=== PATIENT | female | born 1955 | race African-American/Black ===

== ENCOUNTER 2017-05-13 15:36 | Inpatient (IN) | payer MEDICARE ==
[~2017-05-13] VITALS: Ht 167.6 cm; Wt 95.3 kg
[2017-05-13 16:30] VITALS: BP 159/95
--- NOTE | 2017-05-13 17:00 | Diagnostic Imaging Report ---
Indication: Chest pain Technique: One view of the chest Comparison: none Findings: Lungs and pleural spaces are clear. Heart size is normal Impression: No acute process
[2017-05-13 17:41] LABS: BASOPHILS % (AUTO) 1.7 % (0.0-2.0); EOSINOPHILS % (AUTO) 3.5 % (0.0-3.0); HEMATOCRIT 41.3 % (37.0-47.0); HEMOGLOBIN 13.1 G/DL (12.0-16.0); LYMPHOCYTES % (AUTO) 45.5 % (20.0-45.0); MEAN CORPUSCULAR VOLUME 90 FL (80-99); MONOCYTES % (AUTO) 10.1 % (1.0-10.0); NEUTROPHILS % (AUTO) 39.2 % (45.0-75.0); PLATELET COUNT 288 K/UL (150-450); RED BLOOD COUNT 4.57 M/UL (4.20-5.40); RED CELL DISTRIBUTION WIDTH 13.4 % (11.6-14.8); WHITE BLOOD COUNT 6.1 K/UL (4.8-10.8)
[2017-05-13 17:43] LABS: ANION GAP 8 mmol/L (5-15); BLOOD UREA NITROGEN 11 mg/dL (7-18); CALCIUM 9.5 MG/DL (8.5-10.1); CARBON DIOXIDE 33 MMOL/L (21-32); CHLORIDE 100 MMOL/L (98-107); CREATININE 1.5 MG/DL (0.55-1.30); POTASSIUM 3.3 MMOL/L (3.5-5.1); SODIUM 141 MMOL/L (136-145)
[2017-05-13 17:55] LABS: ALANINE AMINOTRANSFERASE 14 U/L (12-78); ALBUMIN 3.3 G/DL (3.4-5.0); ALBUMIN/GLOBULIN RATIO 0.8 (1.0-2.7); ALKALINE PHOSPHATASE 97 U/L (46-116); ASPARTATE AMINO TRANSFERASE 16 U/L (15-37); BILIRUBIN,TOTAL 0.2 MG/DL (0.2-1.0); CKMB 0.5 NG/ML (0.0-3.6); CREATINE KINASE 84 U/L (26-308)
[2017-05-13 18:30] VITALS: BP 154/79
[2017-05-13] MEDS ORDERED: HUMALOG 75/255 UNITS SUBQ (19:30)
[2017-05-13] MEDS ORDERED: GLUCOPHAGE500 MG ORAL (19:30)
[2017-05-13] MEDS ORDERED: PROTONIX40 MG ORAL (19:30)
[2017-05-13] MEDS ORDERED: LIPITOR20 MG ORAL (19:30)
[2017-05-13] MEDS ORDERED: CARVEDILOL25 MG ORAL (19:30)
[2017-05-13] MEDS ORDERED: SENNA8.6 M2 PO (19:30)
[2017-05-13] MEDS ORDERED: BISACODYL5 MG RC (19:30)
[2017-05-13] MEDS ORDERED: CATAPRES0.3 MG ORAL (19:30)
[2017-05-13] MEDS ORDERED: ASPIR 8181 MG ORAL (19:30)
[2017-05-13] MEDS ORDERED: SORBITOL PO (19:30)
[2017-05-13] MEDS ORDERED: DOCUSATE SODIU250 MG ORAL (19:30)
[2017-05-13] MEDS ORDERED: FUROSEMIDE40 MG ORAL (19:30)
[2017-05-13] MEDS ORDERED: MINERAL OIL EN133 ML RC (19:30)
[2017-05-13] MEDS ORDERED: NORVASC10 MG ORAL (19:30)
[2017-05-13] MEDS ORDERED: LISINOPRIL20 MG ORAL (19:30)
[2017-05-13] MEDS ORDERED: [UNRECOGNIZED DRUG - OTHER] (19:30)
[2017-05-13] MEDS ORDERED: Nitroglycerin Subl 0.4mg tab SL PRN (20:00)
[2017-05-13] MEDS ORDERED: dilTIAZem HCl 25mg/5ml Inj IV PRN (20:00)
[2017-05-13] MEDS ORDERED: Miralax 17gm pkt ORAL PRN (20:00)
[2017-05-13] MEDS ORDERED: Labetalol 5mg/ml 20ml vial IV PRN (20:00)
[2017-05-13] MEDS ORDERED: Albuterol/Ipratropium 3ml neb HHN PRN (20:00)
--- NOTE | 2017-05-13 20:01 | Consultation ---
History of Present Illness General Date patient seen: May 13, 2017 Chief Complaint: Headache Referring physician: Dr Kwan Reason for Consultation: Inpatient management Present Illness HPI 61 year old female with hx of HTN, COPD, CVA, obesity, half-way resident presented by paramedics with complaints of headache. she was also found to have high blood pressure over the past few days. Patient complains of mild nausea. with minimal discussion the patient appears to become short of breath. She had a CT of head in ER showing subacute CVA. She is admitted to telemetry for further evaluation. Allergies: Coded Allergies: No Known Allergies (Unverified , 05/13/17) Medication History Scheduled Amlodipine Besylate (Norvasc), 10 MG ORAL DAILY, (Reported) Aspirin* (Aspir 81*), 81 MG ORAL DAILY, (Reported) Atorvastatin Calcium* (Lipitor*), 20 MG ORAL BEDTIME, (Reported) Carvedilol* (Carvedilol*), 25 MG ORAL EVERY 12 HOURS, (Reported) Clonidine Hcl* (Catapres*), 0.3 MG ORAL BID, (Reported) Docusate Sodium* (Docusate Sodium*), 250 MG ORAL TWICE A DAY, (Reported) Furosemide* (Lasix*), 40 MG ORAL TWICE A DAY, (Reported) Insulin Human Isophan/Regular (Humulin 70-30 Vial), 90 SUBQ BIDAC, (Reported) Lisinopril (Lisinopril*), 40 MG ORAL DAILY, (Reported) Metformin Hcl* (Glucophage*), 1,000 MG ORAL DAILY, (Reported) Pantoprazole* (Protonix*), 40 MG ORAL DAILY, (Reported) Sennosides (Senna), 17.6 MG PO HS, (Reported) Scheduled PRN Bisacodyl* (Dulcolax*), 10 MG RC DAILY PRN for Constipation, (Reported) Mineral Oil (Mineral Oil Enema), 133 ML RC DAILY PRN for Constipation, (Reported ) [sorbitol solution], 30 ML PO Q6HR PRN for Constipation, (Reported) Miscellaneous Medications [Humulin reg SS], (Reported) Patient History Healthcare decision maker Resuscitation status Advanced Directive on File Past Medical/Surgical History Past Medical/Surgical History: (1) History of cerebrovascular accident (2) Diabetes mellitus Review of Systems All Other Systems: negative except mentioned in HPI Physical Exam General Appearance: WD/WN Lines, tubes and drains: peripheral HEENT: normocephalic, atraumatic Neck: non-tender, normal alignment Respiratory/Chest: chest wall non-tender, lungs clear Cardiovascular/Chest: normal peripheral pulses, normal rate Abdomen: normal bowel sounds, non tender Genitourinary/Rectal: normal genital exam Extremities: normal range of motion, non-tender Skin Exam: normal pigmentation Neurologic: estimation manager II-XII grossly normal Last 24 Hour Vital Signs Date Time Temp Pulse Resp B/P (MAP) Pulse Ox O2 Delivery O2 Flow Rate FiO2 05/13/17 18:30 87 18 154/79 97 Room Air 05/13/17 16:30 97.5 87 18 159/95 97 Room Air 05/13/17 15:26 97.5 88 16 151/75 98 Room Air Laboratory Tests Test 05/13/17 17:05 White Blood Count 6.1 K/UL (4.8-10.8) Red Blood Count 4.57 M/UL (4.20-5.40) Hemoglobin 13.1 G/DL (12.0-16.0) Hematocrit 41.3 % (37.0-47.0) Mean Corpuscular Volume 90 FL (80-99) Mean Corpuscular Hemoglobin 28.7 PG (27.0-31.0) Mean Corpuscular Hemoglobin Concent 31.8 G/DL (32.0-36.0) L Red Cell Distribution Width 13.4 % (11.6-14.8) Platelet Count 288 K/UL (150-450) Mean Platelet Volume 8.0 FL (6.5-10.1) Neutrophils (%) (Auto) 39.2 % (45.0-75.0) L Lymphocytes (%) (Auto) 45.5 % (20.0-45.0) H Monocytes (%) (Auto) 10.1 % (1.0-10.0) H Eosinophils (%) (Auto) 3.5 % (0.0-3.0) H Basophils (%) (Auto) 1.7 % (0.0-2.0) Sodium Level 141 MMOL/L (136-145) Potassium Level 3.3 MMOL/L (3.5-5.1) L Chloride Level 100 MMOL/L (98-107) Carbon Dioxide Level 33 MMOL/L (21-32) H Anion Gap 8 mmol/L (5-15) Blood Urea Nitrogen 11 mg/dL (7-18) Creatinine 1.5 MG/DL (0.55-1.30) H Estimat Glomerular Filtration Rate 42.9 mL/min (>60) Glucose Level 142 MG/DL (74-106) H Calcium Level 9.5 MG/DL (8.5-10.1) Total Bilirubin 0.2 MG/DL (0.2-1.0) Aspartate Amino Transf (AST/SGOT) 16 U/L (15-37) Alanine Aminotransferase (ALT/SGPT) 14 U/L (12-78) Alkaline Phosphatase 97 U/L (46-116) Total Creatine Kinase 84 U/L (26-308) Creatine Kinase MB 0.5 NG/ML (0.0-3.6) Creatine Kinase MB Relative Index 0.5 Troponin I 0.000 ng/mL (0.000-0.056) Pro-B-Type Natriuretic Peptide 457 pg/mL (0-125) H Total Protein 7.6 G/DL (6.4-8.2) Albumin 3.3 G/DL (3.4-5.0) L Globulin 4.3 g/dL Albumin/Globulin Ratio 0.8 (1.0-2.7) L Lipase 71 U/L (73-393) L Height (Feet): 5 Height (Inches): 6.00 Weight (Pounds): 210 Assessment/Plan Problem List: (1) Hypertensive emergency ICD Codes: I16.1 - Hypertensive emergency SNOMED: 771777193792865 (2) Dyspnea ICD Codes: R06.00 - Dyspnea, unspecified SNOMED: 179445194 (3) Morbid obesity ICD Codes: E66.01 - Morbid (severe) obesity due to excess calories SNOMED: 158361218, 93684141249043 (4) Diabetes mellitus ICD Codes: E11.9 - Type 2 diabetes mellitus without complications SNOMED: 36158584 (5) History of cerebrovascular accident ICD Codes: Z86.73 - Personal history of transient ischemic attack (TIA), and cerebral infarction without residual deficits SNOMED: 484988209 Assessment/Plan titrate fio2 respiratory treatment echo cardio evaluaton monitor bp dvt prophylaxis. JUSTYNA HERNANDEZ May 13, 2017 20:01
--- NOTE | 2017-05-13 20:02 | Emergency Room Report ---
History of Present Illness General Chief Complaint: Headache Source: Patient, Medical Record Present Illness HPI Patient presents with complaints of headache Patient had history of migraines however was also found to have high blood pressure over the past few days Patient complains of mild nausea Denies any chest pain or shortness of breath denies any back or flank pain However with minimal discussion the patient appears to become short of breath She reports again history of migraine Which feels similar to this Denies any focal weakness Denies any neck pain or photophobia The headache is mainly occipital Allergies: Coded Allergies: No Known Allergies (Unverified , 05/13/17) Patient History Past Medical History: see triage record Pertinent Family History: none Reviewed Nursing Documentation: PMH: Agreed, PSxH: Agreed Nursing Documentation-PMH Hx Diabetes: Yes Hx Cerebrovascular Accident: Yes Review of Systems All Other Systems: negative except mentioned in HPI Physical Exam Vital Signs Date Time Temp Pulse Resp B/P (MAP) Pulse Ox O2 Delivery O2 Flow Rate FiO2 05/13/17 15:26 97.5 88 16 151/75 98 Room Air Sp02 EP Interpretation: reviewed, normal General Appearance: mild distress Head: normocephalic, atraumatic Eyes: bilateral eye PERRL, bilateral eye EOMI ENT: hearing grossly normal, normal pharynx, TMs + canals normal, uvula midline Neck: full range of motion, supple, no meningismus, no bony tend Respiratory: no respiratory distress, no retraction, no accessory muscle use, crackles - Bilaterally Cardiovascular #1: normal peripheral pulses, regular rate, rhythm, no edema, no gallop, no JVD, no murmur Gastrointestinal: normal bowel sounds, non tender, soft, no mass, no organomegaly, non-distended, no guarding, no hernia, no pulsatile mass, no rebound Genitourinary: no CVA tenderness Musculoskeletal: normal inspection Neurologic: oriented x3, responsive, [place] line attendant III-XII nml as tested, motor strength/ tone normal, sensory intact Psychiatric: mood/affect normal Skin: normal color, no rash, warm/dry, palpation normal Lymphatic: normal inspection, no adenopathy Medical Decision Making Diagnostic Impression: Primary Impression: Hypertensive urgency, malignant ER Course Patient is a fairly complex patient with multiple differential to consideration including but not limited to cardiac cardiopulmonary and vascular emergencies Patient's lower this appropriate blood pressure is being addressed in the emergency room Patient appears still somewhat uncomfortable And requires further inpatient care Patient's CT head read as chronic ischemic changes, refer to the full report however there are some areas that are nonspecific and will likely require further MRI Patient does not meet any criteria for thrombolytic criteria Patient does not have any slurring speech or focal deficit Main complaint was headache And will have further inpatient care Labs Test 05/13/17 17:05 White Blood Count 6.1 K/UL (4.8-10.8) Red Blood Count 4.57 M/UL (4.20-5.40) Hemoglobin 13.1 G/DL (12.0-16.0) Hematocrit 41.3 % (37.0-47.0) Mean Corpuscular Volume 90 FL (80-99) Mean Corpuscular Hemoglobin 28.7 PG (27.0-31.0) Mean Corpuscular Hemoglobin Concent 31.8 G/DL (32.0-36.0) Red Cell Distribution Width 13.4 % (11.6-14.8) Platelet Count 288 K/UL (150-450) Mean Platelet Volume 8.0 FL (6.5-10.1) Neutrophils (%) (Auto) 39.2 % (45.0-75.0) Lymphocytes (%) (Auto) 45.5 % (20.0-45.0) Monocytes (%) (Auto) 10.1 % (1.0-10.0) Eosinophils (%) (Auto) 3.5 % (0.0-3.0) Basophils (%) (Auto) 1.7 % (0.0-2.0) Sodium Level 141 MMOL/L (136-145) Potassium Level 3.3 MMOL/L (3.5-5.1) Chloride Level 100 MMOL/L (98-107) Carbon Dioxide Level 33 MMOL/L (21-32) Anion Gap 8 mmol/L (5-15) Blood Urea Nitrogen 11 mg/dL (7-18) Creatinine 1.5 MG/DL (0.55-1.30) Estimat Glomerular Filtration Rate 42.9 mL/min (>60) Glucose Level 142 MG/DL (74-106) Calcium Level 9.5 MG/DL (8.5-10.1) Total Bilirubin 0.2 MG/DL (0.2-1.0) Aspartate Amino Transf (AST/SGOT) 16 U/L (15-37) Alanine Aminotransferase (ALT/SGPT) 14 U/L (12-78) Alkaline Phosphatase 97 U/L (46-116) Total Creatine Kinase 84 U/L (26-308) Creatine Kinase MB 0.5 NG/ML (0.0-3.6) Creatine Kinase MB Relative Index 0.5 Troponin I 0.000 ng/mL (0.000-0.056) Pro-B-Type Natriuretic Peptide 457 pg/mL (0-125) Total Protein 7.6 G/DL (6.4-8.2) Albumin 3.3 G/DL (3.4-5.0) Globulin 4.3 g/dL Albumin/Globulin Ratio 0.8 (1.0-2.7) Lipase 71 U/L (73-393) Rhythm Strip Diag. Results EP Interpretation: yes Rate: 78 Rhythm: NSR, no PVC's, no ectopy Chest X-Ray Diagnostic Results Chest X-Ray Diagnostic Results : Chest X-Ray Ordered: Yes # of Views/Limited/Complete: 1 View Indication: Chest Pain EP Interpretation: Yes Interpretation: no consolidation, no effusion, no pneumothorax Impression: No acute disease Electronically Signed by: Jessica Dean, CT/MRI/US Diagnostic Results CT/MRI/US Diagnostic Results : Imaging Test Ordered: CT head evidence of right LEATHER CLEANER territory infarct does not appear acute ill e Impression CT head:chronic ischemic changes Last Vital Signs Date Time Temp Pulse Resp B/P (MAP) Pulse Ox O2 Delivery O2 Flow Rate FiO2 05/13/17 18:30 87 18 154/79 97 Room Air 05/13/17 16:30 97.5 Status: improved Disposition: ADMITTED INPATIENT Condition: Serious Referrals: SAKSHI RIDER (PCP) JESSICA DEAN D.O. May 13, 2017 20:02
[2017-05-13 20:25] VITALS: BP 163/66
[2017-05-13 21:00] VITALS: BP 145/79
[2017-05-13 21:38] VITALS: BP 163/66
[2017-05-13] MEDS: Carvedilol 25mg Tab ORAL SCH (21:42)
[2017-05-13] MEDS: Heparin 5000 units/ml inj SUBQ SCH (21:43)
[2017-05-14] VITALS: BP 150/73
[2017-05-14 04:00] VITALS: BP 159/93
[2017-05-14 08:00] VITALS: BP 160/102
[2017-05-14] MEDS: Furosemide 40mg tab ORAL SCH ×2 (10:02→17:12)
[2017-05-14] MEDS: Carvedilol 25mg Tab ORAL SCH ×2 (10:02→22:02)
[2017-05-14] MEDS: Lisinopril 20mg tab ORAL SCH (10:03)
[2017-05-14] MEDS: Heparin 5000 units/ml inj SUBQ SCH ×2 (10:05→22:05)
--- NOTE | 2017-05-14 11:57 | Diagnostic Imaging Report ---
Indications: Altered mental status, head pain Technique: Spiral acquisitions obtained through the brain. Angled axial and coronal 5 x 5 mm slices were reconstructed. Total dose length product 1347.93 mGycm. CTDI vol(s) 70.38 mGy. Dose reduction achieved using automated exposure control Comparison: None. Findings: Status post there is cytotoxic edema of the right occipital lobe. No associated hemorrhage. There is focal decreased attenuation in the right ugalde radiata. Otherwise normal vargas-white differentiation. Normal for age ventricles and extra axial CSF spaces. No acute hemorrhage. No mass effect nor midline shift. There is ethmoid sinus disease. The calvarium is intact. There is evidence of empty sella. There is mastoid disease on the left Impression: Subacute infarcts of the right occipital lobe, nonhemorrhagic Low-attenuation the right ugalde radiata, subacute infarct in this location also possibility Negative for acute intracranial bleed or significant mass effect Sinus disease Mastoid disease Empty sella This agrees with the preliminary interpretation provided overnight by [facility] teleradiology service. The CT scanner at [facility] is accredited by the [employer] and the scans are performed using protocols designed to limit radiation exposure to as low as reasonably achievable to attain images of sufficient resolution adequate for diagnostic evaluation.
[2017-05-14 12:00] VITALS: BP 164/94
[2017-05-14] MEDS: Enalaprilat 2.5mg/2ml Inj IV PRN (12:07)
--- NOTE | 2017-05-14 12:38 | Pulmonology Progress Note ---
Assessment/Plan Problems: (1) Hypertensive emergency (2) Dyspnea (3) Morbid obesity (4) Diabetes mellitus (5) History of cerebrovascular accident Assessment/Plan feeling better less short of breath monitor bp check echo f/u troponin cardio evaluation. Subjective ROS Limited/Unobtainable: No Constitutional: Reports: no symptoms HEENT: Repors: no symptoms Respiratory: Reports: no symptoms Allergies: Coded Allergies: No Known Allergies (Unverified , 05/13/17) Objective Last 24 Hour Vital Signs Date Time Temp Pulse Resp B/P (MAP) Pulse Ox O2 Delivery O2 Flow Rate FiO2 05/14/17 12:07 164/94 05/14/17 10:03 160/102 05/14/17 10:03 87 160/102 05/14/17 10:02 87 160/102 05/14/17 08:00 89 05/14/17 08:00 98.2 105 20 160/102 95 Room Air 05/14/17 04:00 97.9 95 21 159/93 86 Room Air 05/14/17 04:00 84 05/14/17 00:00 97.7 95 20 150/73 94 Room Air 05/13/17 21:42 86 145/79 05/13/17 21:38 97.5 84 18 163/66 98 Room Air 05/13/17 21:12 86 05/13/17 21:00 97.9 86 22 145/79 86 Room Air 05/13/17 20:55 97.5 84 18 163/66 98 Room Air 05/13/17 20:25 84 18 163/66 98 Room Air 05/13/17 18:30 87 18 154/79 97 Room Air 05/13/17 16:30 97.5 87 18 159/95 97 Room Air 05/13/17 15:26 97.5 88 16 151/75 98 Room Air Intake and Output 05/13/17 05/14/17 19:00 07:00 Intake Total 0 ml 200 ml Balance 0 ml 200 ml Intake Oral 0 ml 200 ml # Voids 1 Objective General Appearance: WD/WN Lines, tubes and drains: peripheral HEENT: normocephalic, atraumatic Neck: non-tender, normal alignment Respiratory/Chest: chest wall non-tender, lungs clear Cardiovascular/Chest: normal peripheral pulses, normal rate Abdomen: normal bowel sounds, non tender Genitourinary/Rectal: normal genital exam Extremities: normal range of motion, non-tender Skin Exam: normal pigmentation Neurologic: park attendant II-XII grossly normal Laboratory Tests 05/13/17 17:05: White Blood Count 6.1, Red Blood Count 4.57, Hemoglobin 13.1, Hematocrit 41.3, Mean Corpuscular Volume 90, Mean Corpuscular Hemoglobin 28.7, Mean Corpuscular Hemoglobin Concent 31.8L, Red Cell Distribution Width 13.4, Platelet Count 288, Mean Platelet Volume 8.0, Neutrophils (%) (Auto) 39.2L, Lymphocytes (%) (Auto) 45.5H, Monocytes (%) (Auto) 10.1H, Eosinophils (%) (Auto) 3.5H, Basophils (%) ( Auto) 1.7, Sodium Level 141, Potassium Level 3.3L, Chloride Level 100, Carbon Dioxide Level 33H, Anion Gap 8, Blood Urea Nitrogen 11, Creatinine 1.5H, Estimat Glomerular Filtration Rate 42.9, Glucose Level 142H, Calcium Level 9.5, Total Bilirubin 0.2, Aspartate Amino Transf (AST/SGOT) 16, Alanine Aminotransferase (ALT/SGPT) 14, Alkaline Phosphatase 97, Total Creatine Kinase 84, Creatine Kinase MB 0.5, Creatine Kinase MB Relative Index 0.5, Troponin I 0.000, Pro-B-Type Natriuretic Peptide 457H, Total Protein 7.6, Albumin 3.3L, Globulin 4.3, Albumin/Globulin Ratio 0.8L, Lipase 71L Current Medications Medications (Trade) Dose Ordered Sig/Dena Route PRN Reason Start Time Stop Time Status Last Admin Dose Admin Acetaminophen (Tylenol) 650 mg Q4H PRN ORAL FEVER (temp>100.5F) 05/13/17 20:00 06/12/17 19:59 05/14/17 02:56 Albuterol/ Ipratropium (Albuterol/ Ipratropium) 3 ml Q4H PRN HHN Shortness of Breath 05/13/17 20:00 05/18/17 19:59 Amlodipine Besylate (Norvasc) 10 mg DAILY ORAL 05/14/17 09:00 06/13/17 08:59 05/14/17 10:03 Atorvastatin Calcium (Lipitor) 20 mg BEDTIME ORAL 05/13/17 21:00 06/12/17 20:59 05/13/17 21:41 Carvedilol (Coreg) 25 mg EVERY 12 HOURS ORAL 05/13/17 21:00 06/12/17 20:59 05/14/17 10:02 Dextrose (Dextrose 50%) STAT PRN IV Hypoglycemia 05/14/17 11:15 06/13/17 11:14 Diltiazem HCl (Cardizem) 10 mg Q1H PRN IV heart rate more than 120, 05/13/17 20:00 06/12/17 19:59 Enalaprilat (Vasotec) 2.5 mg Q6H PRN IV sbp more than 160 05/13/17 20:00 06/12/17 19:59 05/14/17 12:07 Furosemide (Lasix) 40 mg TWICE A DAY ORAL 05/14/17 09:00 06/13/17 08:59 05/14/17 10:02 Heparin Sodium (Porcine) (Heparin 5000 units/ml) 5,000 units EVERY 12 HOURS SUBQ 05/13/17 21:00 06/12/17 20:59 05/14/17 10:05 Insulin Aspart (NovoLOG) BEFORE MEALS AND HS SUBQ 05/14/17 12:30 06/13/17 12:29 Labetalol HCl (Normodyne) 20 mg Q1H PRN IV sbp more than 180 05/13/17 20:00 06/12/17 19:59 Lisinopril (Prinivil) 40 mg DAILY ORAL 05/14/17 09:00 06/13/17 08:59 05/14/17 10:03 Nitroglycerin (Ntg) 0.4 mg Q5M PRN SL Prn Chest Pain 05/13/17 20:00 06/12/17 19:59 Ondansetron HCl (Zofran) 4 mg Q6H PRN IVP Nausea & Vomiting 05/13/17 20:00 06/12/17 19:59 Pantoprazole (Protonix) 40 mg DAILY ORAL 05/14/17 09:00 06/13/17 08:59 05/14/17 10:03 Polyethylene Glycol (Miralax) 17 gm DAILYPRN PRN ORAL Constipation 05/13/17 20:00 06/12/17 19:59 Temazepam (Restoril) 15 mg HSPRN PRN ORAL Insomnia 05/13/17 20:00 05/20/17 19:59 JUSTYNA HERNANDEZ May 14, 2017 12:38
[2017-05-14] MEDS: NovoLOG Insulin Flexpen SUBQ SCH ×3 (13:34→22:01)
[2017-05-14 16:00] VITALS: BP 158/75
--- NOTE | 2017-05-14 17:07 | Cardiology Report ---
APPROVED REPORT EXAM: Two-dimensional and M-mode echocardiogram with Doppler and color Doppler. INDICATION Left Ventricular Function M-Mode DIMENSIONS IVSd1.7 (0.7-1.1cm)Left Atrium (MM)4.2 (1.6-4.0cm) LVDd4.9 (3.5-5.6cm)Aortic Root2.6 (2.0-3.7cm) PWd1.3 (0.7-1.1cm)Aortic Cusp Exc.1.9 (1.5-2.0cm) LVDs3.4 (2.5-4.0cm) PWs2.1 cm Mild left ventricular enlargement by 2D. Normal left ventricular systolic function and wall motion. Left ventricular ejection fraction estimated to be 55 %. Mild left ventricular hypertrophy. Anterior Echo-free space, may be due to pericardial fat or effusion. All other cardiac chamber sizes are within normal limits. Focal aortic valve sclerosis with adequate cusp excursion. Mildly thickened mitral valve leaflets with normal excursion. Mild mitral annulus and aortic root calcification. Normal pulmonic valve structure. Normal tricuspid valve structure. IVC dilated at 2.1 cm without physiological collapse. A color flow and spectral Doppler study was performed and revealed: Mild aortic regurgitation. Trace mitral regurgitation. Mitral diastolic velocities suggest mild left ventricular diastolic dysfunction (Grade I). Trace tricuspid regurgitation. Tricuspid systolic velocities suggests peak right ventricular systolic pressure of 22 mmHg. Trace pulmonic regurgitation present.
--- NOTE | 2017-05-14 17:15 | Cardiology Report ---
APPROVED REPORT EKG Measurement Heart [id number] Normal sinus rhythm Nonspecific T wave abnormality Abnormal ECG
--- NOTE | 2017-05-14 19:41 | Cardiology Progress Note ---
Assessment/Plan Assessment/Plan The patient is seen and examined, full consult note is dictated. Objective Last 24 Hour Vital Signs Date Time Temp Pulse Resp B/P (MAP) Pulse Ox O2 Delivery O2 Flow Rate FiO2 05/14/17 16:00 97.3 98 20 158/75 95 Room Air 05/14/17 12:07 164/94 05/14/17 12:00 97.8 94 20 164/94 94 Room Air 05/14/17 12:00 103 05/14/17 10:03 160/102 05/14/17 10:03 87 160/102 05/14/17 10:02 87 160/102 05/14/17 08:00 89 05/14/17 08:00 98.2 105 20 160/102 95 Room Air 05/14/17 04:00 97.9 95 21 159/93 86 Room Air 05/14/17 04:00 84 05/14/17 00:00 97.7 95 20 150/73 94 Room Air 05/13/17 21:42 86 145/79 05/13/17 21:38 97.5 84 18 163/66 98 Room Air 05/13/17 21:12 86 05/13/17 21:00 97.9 86 22 145/79 86 Room Air 05/13/17 20:55 97.5 84 18 163/66 98 Room Air 05/13/17 20:25 84 18 163/66 98 Room Air Intake and Output 05/13/17 05/14/17 19:00 07:00 Intake Total 0 ml 200 ml Balance 0 ml 200 ml Intake Oral 0 ml 200 ml # Voids 1 Laboratory Tests Test 05/14/17 18:52 Troponin I Pending ANKIT ALVA May 14, 2017 19:41
[2017-05-14 20:00] VITALS: BP 153/72
--- NOTE | 2017-05-14 20:01 | History and Physical Report ---
DATE OF ADMISSION: 05/13/2017 TIME: 1 p.m. CONSULTANTS: 1. Albert Lea M.D. 2. Tomy Morrell M.D. CHIEF COMPLAINT: Headache and hypertensive urgency. BRIEF HISTORY: The patient is a 61-year-old female from [facility] presents with two-day of increased headache. The patient diagnosed with hypertensive urgency, admitted to ER last night, currently feeling a little bit better. No complaint. PAST MEDICAL HISTORY: Hypertension, diabetes, and CVA. PAST SURGICAL HISTORY: Tonsil. MEDICATIONS: NovoLog, Norvasc, Lasix, Prinivil, Protonix, Lipitor, Coreg, heparin, albuterol, nitroglycerin, Tylenol, Zofran, temazepam, enalapril, diltiazem and labetalol. ALLERGIES: Denies. SOCIAL HISTORY: No smoking. No alcohol. No intravenous drug abuse. FAMILY HISTORY: Noncontributory. REVIEW OF SYSTEMS: No chest pain. No shortness of breath. Slight headache. Slight nausea. No vomiting or diarrhea. PHYSICAL EXAMINATION: GENERAL: Calm in bed, oriented x2, no acute distress. VITAL SIGNS: Temperature is 97 degrees, pulse 94, respirations 20, and blood pressure 164/94. CARDIOVASCULAR: No murmur. LUNGS: Distant and clear. ABDOMEN: Bowel sounds positive. Soft, nontender and nondistended. EXTREMITIES: No cyanosis or edema. NEUROLOGIC: The patient moves all extremities, but slightly weak. LABORATORY AND DIAGNOSTIC DATA: CBC is normal. BMP show potassium 3.3, CO2 33, creatinine 1.5 and glucose 142. Troponin 0.0. BNP is 457. Albumin 3.3. Lipase 71. ASSESSMENT: 1. Hypertensive urgency. 2. Headache. 3. Cerebrovascular accident history. 4. Diabetes. PLAN: Blood pressure, blood sugar, and pain control. Dietary followup. Resume home medications. OT/PT. Dietary evaluation. CBC and BMP in the morning. We will continue to follow this patient. Juan Alberto Kwan D.O. DR: TONI JOB#: [id number] CC:
--- NOTE | 2017-05-14 21:46 | Consultation ---
DATE OF CONSULTATION: 05/14/2017 CARDIOLOGY CONSULTATION CONSULTING PHYSICIAN: Albert Lea M.D. REFERRING PHYSICIAN: Juan Alberto Kwan D.O. REASON FOR CONSULTATION: Management of accelerated hypertension. HISTORY OF PRESENT ILLNESS: The patient is a very unfortunate 61-year-old black Mexican, who has history of right cerebrovascular accident with left hemiparesis, history of diabetes mellitus, who presents to the hospital with complaints of headache that has been going on for the past few days. In the emergency department, she was found to have blood pressure of 151/75 mmHg. Initial 12-lead electrocardiogram in the emergency department was significant for sinus rhythm with nonspecific ST and T-wave abnormality, but no clear-cut evidence of ischemia or left ventricular hypertrophy. She was admitted to the hospital telemetry unit for accelerated hypertension. Her risk factors for coronary artery disease including diabetes mellitus and history of prior vascular event. Cardiology consultation was made to assist with management of accelerated hypertension. The patient denies any prior history of congestive heart failure or coronary artery disease or cardiac arrhythmias. She states that her ambulation is limited due to recent stroke, which happened in . She has been getting therapy and trying to walk with a cane. PAST MEDICAL HISTORY: Right cerebrovascular accident with left hemiparesis, diabetes mellitus, and obesity. ALLERGIES: No known drug allergies. MEDICATIONS: List of medications in the facility include amlodipine 10 mg p.o. daily, aspirin 81 mg p.o. daily, Lipitor 20 mg p.o. at bedtime, Dulcolax 10 mg rectal daily p.r.n. for constipation, carvedilol 25 mg q.12 hours, Catapres 0.3 mg twice daily, Colace 250 mg twice daily, furosemide 40 mg twice daily, insulin Humulin 70/30 90 units subcutaneously twice daily, lisinopril 40 mg daily, Glucophage 1000 mg daily, mineral oil enema 133 mL rectally p.r.n. constipation, Protonix 40 mg p.o. daily, senna 17.6 mg p.o. at bedtime, and sorbitol 30 mL p.o. every six hours p.r.n. constipation. FAMILY HISTORY: Brother had heart attack in his 60s. SOCIAL HISTORY: Resident of a [facility] facility, [facility] under the care of Dr. Kwan. Denies any prior history of tobacco. She was socially drinker, currently not drinking. Denies any illicit drug use. REVIEW OF SYSTEMS: HEENT: Complains of headache and dizziness. CONSTITUTIONAL: Denies any fever, chills, night sweats, or weight loss. CARDIOVASCULAR: Denies any chest pain, shortness of breath, PND, orthopnea, leg swelling, palpitations, or syncope. PULMONARY: Denies any cough, hemoptysis, or wheezing. GASTROINTESTINAL: Denies any nausea, vomiting, diarrhea, constipation, abdominal pain, or GI bleed. GENITOURINARY: Denies any hematuria, dysuria, or incontinence. NEUROLOGIC: She had some weakness in the left upper and lower limbs and altered speech. PHYSICAL EXAMINATION: VITAL SIGNS: At the time of arrival to the hospital, blood pressure was 151/75, respirations 16, pulse of 88, temperature 97.5 degrees Fahrenheit, and O2 saturation 98% on room air. GENERAL: The patient is a very pleasant 61-year-old lady, in no apparent respiratory distress. Alert and oriented x4. HEENT: Atraumatic, normocephalic. Anicteric. Pupils are equal, round, and reactive to light and accommodation. Extraocular muscles intact. NECK: JVP less than 5 cm. No carotid bruits. Carotid upstrokes 2+ bilaterally. CARDIOVASCULAR: Normal S1, S2. Regular rate and rhythm. No murmurs, gallops, or rubs. PMI is at fourth intercostal space at the midclavicular line. LUNGS: Clear to auscultation bilaterally. ABDOMEN: Soft, nontender, and nondistended. No hepatosplenomegaly. Positive bowel sounds. EXTREMITIES: No evidence of edema, clubbing, or cyanosis. There is decreased motor function on the left upper and lower extremities. LABORATORY AND DIAGNOSTIC DATA: Laboratory findings, sodium 141, potassium is 3.3, chloride 100, bicarbonate 33, BUN of 11, creatinine 1.5, glucose is 142, and calcium is 9.5. Troponin I is 0.00. ProBNP was 457. WBC 6.1, hemoglobin 13.1, hematocrit of 41.3, and platelet count is 288. Chest x-ray shows no acute cardiopulmonary disease, no evidence of pulmonary edema or congestive heart failure. A 2D echocardiography has shown normal LV systolic function with LVEF of about 55%, mild left ventricular hypertrophy, mild aortic regurgitation, grade 1 LV diastolic dysfunction with normal intracardiac filling pressures. ASSESSMENT AND PLAN: The patient is a very unfortunate 61-year-old female, seen in Cardiology consultation at request of Dr. Kwan. 1. Accelerated hypertension. The patient was on multiple blood pressure regimen most likely resistant hypertension requires to be corrected with aggressive medical therapy. I would like to discontinue Lasix and it has created an impact on the renal function. Instead, I would like to use the spironolactone, which is used for resistant hypertension especially in view of underlying hypokalemia. 2. Hypokalemia, could also be due to Lasix. I will continue daily creatinine in the next few days. The patient will also be continued on calcium-channel jj. I would switch her to a nondihydropyridine with rate control properties and less complications of edema. She would require to be on PAKO inhibitors or ARBs. I would also consider hydralazine. 3. Normal left ventricular systolic function with LVEF of about 55% to 60%. There is no evidence of either systolic or diastolic heart failure on 2D echocardiography. 4. Renal failure with creatinine of 1.5, could be secondary to diuretic, which will be placed on hold. 5. History of cerebrovascular accident. The patient requires to be on aspirin and at least moderate in intensity statins. 6. History of diabetes mellitus. Risk factor modification is the mainstay of secondary preventive measure. I would like to thank, Dr. Kwan, for the courtesy of this consultation. Albert Lea M.D. DR: JUAN M JOB#: [id number] CC:
[2017-05-14] MEDS: Spironolactone 25mg tab ORAL SCH (22:03)
[2017-05-14] MEDS: Verapamil 180mg SR tab ORAL SCH (22:03)
[2017-05-15] VITALS (8 sets, daily range): BP systolic 134–163; BP diastolic 71–90
[2017-05-15] MEDS: NovoLOG Insulin Flexpen SUBQ SCH ×5 (06:44→21:56)
[2017-05-15 07:57] LABS: BASOPHILS % (AUTO) 1.9 % (0.0-2.0); HEMATOCRIT 42.2 % (37.0-47.0); HEMOGLOBIN 14.5 G/DL (12.0-16.0); LYMPHOCYTES % (AUTO) 34.5 % (20.0-45.0); MEAN CORPUSCULAR VOLUME 91 FL (80-99); MONOCYTES % (AUTO) 7.1 % (1.0-10.0); NEUTROPHILS % (AUTO) 54.5 % (45.0-75.0); PLATELET COUNT 338 K/UL (150-450); RED BLOOD COUNT 4.63 M/UL (4.20-5.40); RED CELL DISTRIBUTION WIDTH 13.8 % (11.6-14.8); WHITE BLOOD COUNT 6.6 K/UL (4.8-10.8)
[2017-05-15] MEDS: Verapamil 180mg SR tab ORAL SCH (08:07)
[2017-05-15 08:08] LABS: ANION GAP 11 mmol/L (5-15); BLOOD UREA NITROGEN 12 mg/dL (7-18); CALCIUM 9.9 MG/DL (8.5-10.1); CARBON DIOXIDE 29 MMOL/L (21-32); CHLORIDE 98 MMOL/L (98-107); CREATININE 1.7 MG/DL (0.55-1.30); POTASSIUM 3.2 MMOL/L (3.5-5.1); SODIUM 138 MMOL/L (136-145)
[2017-05-15] MEDS: Carvedilol 25mg Tab ORAL SCH ×3 (08:08→21:55)
[2017-05-15] MEDS: Lisinopril 20mg tab ORAL SCH (08:09)
[2017-05-15] MEDS: Heparin 5000 units/ml inj SUBQ SCH ×3 (08:09→21:56)
[2017-05-15] MEDS: Spironolactone 25mg tab ORAL SCH (08:09)
--- NOTE | 2017-05-15 08:38 | Cardiology Progress Note ---
Assessment/Plan Assessment/Plan 1. Accelerated hypertension. Increase verapamil to 240mg daily. 2. Normal left ventricular systolic function with LVEF of about 55% to 60%. There is no evidence of either systolic or diastolic heart failure on 2D echocardiography. 3. Renal failure with creatinine up to 1.7, off lasix since last night, expect improvement of renal function. 4. History of cerebrovascular accident. Requires to be on ASA and statins. Objective Last 24 Hour Vital Signs Date Time Temp Pulse Resp B/P (MAP) Pulse Ox O2 Delivery O2 Flow Rate FiO2 05/15/17 08:09 139/75 05/15/17 08:08 100 139/75 05/15/17 08:07 100 139/75 05/15/17 05:57 98.0 05/15/17 04:12 86 05/15/17 04:00 100.9 100 24 134/76 100 Room Air 05/15/17 00:00 98.2 108 21 145/76 100 Room Air 05/15/17 00:00 98.2 108 20 145/76 100 Room Air 05/14/17 23:51 113 05/14/17 22:03 103 153/72 05/14/17 22:02 103 153/72 05/14/17 20:00 98.4 103 21 153/72 95 Room Air 05/14/17 19:56 101 05/14/17 16:00 97.3 98 20 158/75 95 Room Air 05/14/17 16:00 120 05/14/17 12:07 164/94 05/14/17 12:00 97.8 94 20 164/94 94 Room Air 05/14/17 12:00 103 05/14/17 10:03 160/102 05/14/17 10:03 87 160/102 05/14/17 10:02 87 160/102 Intake and Output 05/14/17 05/15/17 19:00 07:00 Intake Total 560 ml Balance 560 ml Intake Oral 560 ml # Voids 3 1 Laboratory Tests Test 05/14/17 18:52 05/15/17 06:55 Troponin I 0.000 ng/mL (0.000-0.056) Pending White Blood Count 6.6 K/UL (4.8-10.8) Red Blood Count 4.63 M/UL (4.20-5.40) Hemoglobin 14.5 G/DL (12.0-16.0) Hematocrit 42.2 % (37.0-47.0) Mean Corpuscular Volume 91 FL (80-99) Mean Corpuscular Hemoglobin 31.4 PG (27.0-31.0) H Mean Corpuscular Hemoglobin Concent 34.4 G/DL (32.0-36.0) Red Cell Distribution Width 13.8 % (11.6-14.8) Platelet Count 338 K/UL (150-450) Mean Platelet Volume 8.1 FL (6.5-10.1) Neutrophils (%) (Auto) 54.5 % (45.0-75.0) Lymphocytes (%) (Auto) 34.5 % (20.0-45.0) Monocytes (%) (Auto) 7.1 % (1.0-10.0) Eosinophils (%) (Auto) 2.0 % (0.0-3.0) Basophils (%) (Auto) 1.9 % (0.0-2.0) Sodium Level 138 MMOL/L (136-145) Potassium Level 3.2 MMOL/L (3.5-5.1) L Chloride Level 98 MMOL/L (98-107) Carbon Dioxide Level 29 MMOL/L (21-32) Anion Gap 11 mmol/L (5-15) Blood Urea Nitrogen 12 mg/dL (7-18) Creatinine 1.7 MG/DL (0.55-1.30) H Estimat Glomerular Filtration Rate 37.1 mL/min (>60) Glucose Level 290 MG/DL (74-106) H Calcium Level 9.9 MG/DL (8.5-10.1) Objective HEENT: Atraumatic, normocephalic. Anicteric. Pupils are equal, round, and reactive to light and accommodation. Extraocular muscles intact. NECK: JVP less than 5 cm. No carotid bruits. Carotid upstrokes 2+ bilaterally. CARDIOVASCULAR: Normal S1, S2. Regular rate and rhythm. Tachycardic, No murmurs, gallops, or rubs. PMI is at fourth intercostal space at the midclavicular line. LUNGS: Clear to auscultation bilaterally. ABDOMEN: Soft, nontender, and nondistended. No hepatosplenomegaly. Positive bowel sounds. EXTREMITIES: No evidence of edema, clubbing, or cyanosis. There is decreased motor function on the left upper and lower extremities. ANKIT ALVA May 15, 2017 08:38
[2017-05-15] MEDS ORDERED: Verapamil SR 240mg tab ORAL SCH (09:00)
[2017-05-15 09:30] LABS: ALANINE AMINOTRANSFERASE 15 U/L (12-78); ALBUMIN 3.7 G/DL (3.4-5.0); ALKALINE PHOSPHATASE 109 U/L (46-116); ASPARTATE AMINO TRANSFERASE 18 U/L (15-37); BILIRUBIN,DIRECT 0.1 MG/DL (0.0-0.3); BILIRUBIN,TOTAL 0.4 MG/DL (0.2-1.0)
--- NOTE | 2017-05-15 14:02 | General Progress Note ---
Assessment/Plan Problem List: (1) Hypertensive urgency, malignant ICD Codes: I16.0 - Hypertensive urgency SNOMED: 822197748 (2) Diabetes mellitus ICD Codes: E11.9 - Type 2 diabetes mellitus without complications SNOMED: 21820545 (3) History of cerebrovascular accident ICD Codes: Z86.73 - Personal history of transient ischemic attack (TIA), and cerebral infarction without residual deficits SNOMED: 172805177 (4) Morbid obesity ICD Codes: E66.01 - Morbid (severe) obesity due to excess calories SNOMED: 542248473, 13684304604937 (5) Dyspnea ICD Codes: R06.00 - Dyspnea, unspecified SNOMED: 759251238 (6) Hypertensive emergency ICD Codes: I16.1 - Hypertensive emergency SNOMED: 949807127110393 Status: unchanged Assessment/Plan ot pt diet bp pain control cbc bmp am Subjective Constitutional: Reports: weakness Allergies: Coded Allergies: No Known Allergies (Unverified , 05/13/17) All Systems: reviewed and negative except above Subjective calm in bed Objective Last 24 Hour Vital Signs Date Time Temp Pulse Resp B/P (MAP) Pulse Ox O2 Delivery O2 Flow Rate FiO2 05/15/17 12:21 97.9 05/15/17 12:00 98.2 99 18 155/84 100 Room Air 05/15/17 08:09 139/75 05/15/17 08:08 100 139/75 05/15/17 08:07 100 139/75 05/15/17 07:45 97.9 100 18 139/75 100 Room Air 05/15/17 07:40 118 05/15/17 04:12 86 05/15/17 04:00 100.9 100 24 134/76 100 Room Air 05/15/17 00:00 98.2 108 21 145/76 100 Room Air 05/15/17 00:00 98.2 108 20 145/76 100 Room Air 05/14/17 23:51 113 05/14/17 22:03 103 153/72 05/14/17 22:02 103 153/72 05/14/17 20:00 98.4 103 21 153/72 95 Room Air 05/14/17 19:56 101 05/14/17 16:00 97.3 98 20 158/75 95 Room Air 05/14/17 16:00 120 Intake and Output 05/14/17 05/15/17 19:00 07:00 Intake Total 560 ml Balance 560 ml Intake Oral 560 ml # Voids 3 1 Laboratory Tests 05/14/17 18:52: Troponin I 0.000 05/15/17 06:55: Troponin I 0.000, White Blood Count 6.6, Red Blood Count 4.63, Hemoglobin 14.5, Hematocrit 42.2, Mean Corpuscular Volume 91, Mean Corpuscular Hemoglobin 31.4H, Mean Corpuscular Hemoglobin Concent 34.4, Red Cell Distribution Width 13.8, Platelet Count 338, Mean Platelet Volume 8.1, Neutrophils (%) (Auto) 54.5, Lymphocytes (%) (Auto) 34.5, Monocytes (%) (Auto) 7.1, Eosinophils (%) (Auto) 2.0, Basophils (%) (Auto) 1.9, Sodium Level 138, Potassium Level 3.2L, Chloride Level 98, Carbon Dioxide Level 29, Anion Gap 11, Blood Urea Nitrogen 12, Creatinine 1.7H, Estimat Glomerular Filtration Rate 37.1, Glucose Level 290H, Calcium Level 9.9, Total Bilirubin 0.4, Direct Bilirubin 0.1, Aspartate Amino Transf (AST/SGOT) 18, Alanine Aminotransferase (ALT/SGPT) 15, Alkaline Phosphatase 109, Total Protein 7.7, Albumin 3.7 Height (Feet): 5 Height (Inches): 6.00 Weight (Pounds): 210 General Appearance: lethargic EENT: normal ENT inspection Neck: normal alignment Cardiovascular: normal peripheral pulses, normal rate, regular rhythm Respiratory/Chest: chest wall non-tender, lungs clear, normal breath sounds Abdomen: normal bowel sounds, non tender, soft Extremities: normal inspection Edema: no edema noted Arm (L), no edema noted Arm (R), no edema noted Leg (L), no edema noted Leg (R), no edema noted Pedal (L), no edema noted Pedal (R), no edema noted Generalized Neurologic: responsive, motor weakness Skin: normal pigmentation, warm/dry SAKSHI RIDER May 15, 2017 14:02
--- NOTE | 2017-05-15 17:13 | Pulmonology Progress Note ---
Assessment/Plan Problems: (1) Hypertensive emergency (2) Dyspnea (3) Morbid obesity (4) Diabetes mellitus (5) History of cerebrovascular accident Assessment/Plan feeling better less short of breath monitor bp check echo f/u troponin cardio evaluation. watch creatinine med/surg Subjective ROS Limited/Unobtainable: No Constitutional: Reports: no symptoms HEENT: Repors: no symptoms Respiratory: Reports: no symptoms Allergies: Coded Allergies: No Known Allergies (Unverified , 05/13/17) Objective Last 24 Hour Vital Signs Date Time Temp Pulse Resp B/P (MAP) Pulse Ox O2 Delivery O2 Flow Rate FiO2 05/15/17 17:07 98.4 86 18 141/80 100 Room Air 05/15/17 14:01 79 05/15/17 12:21 97.9 05/15/17 12:00 98.2 99 18 155/84 100 Room Air 05/15/17 08:09 139/75 05/15/17 08:08 100 139/75 05/15/17 08:07 100 139/75 05/15/17 07:45 97.9 100 18 139/75 100 Room Air 05/15/17 07:40 118 05/15/17 04:12 86 05/15/17 04:00 100.9 100 24 134/76 100 Room Air 05/15/17 00:00 98.2 108 21 145/76 100 Room Air 05/15/17 00:00 98.2 108 20 145/76 100 Room Air 05/14/17 23:51 113 05/14/17 22:03 103 153/72 05/14/17 22:02 103 153/72 05/14/17 20:00 98.4 103 21 153/72 95 Room Air 05/14/17 19:56 101 Intake and Output 05/14/17 05/15/17 19:00 07:00 Intake Total 560 ml Balance 560 ml Intake Oral 560 ml # Voids 3 1 Objective General Appearance: WD/WN Lines, tubes and drains: peripheral HEENT: normocephalic, atraumatic Neck: non-tender, normal alignment Respiratory/Chest: chest wall non-tender, lungs clear Cardiovascular/Chest: normal peripheral pulses, normal rate Abdomen: normal bowel sounds, non tender Genitourinary/Rectal: normal genital exam Extremities: normal range of motion, non-tender Skin Exam: normal pigmentation 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 Laboratory Tests 05/14/17 18:52: Troponin I 0.000 05/15/17 06:55: Troponin I 0.000, White Blood Count 6.6, Red Blood Count 4.63, Hemoglobin 14.5, Hematocrit 42.2, Mean Corpuscular Volume 91, Mean Corpuscular Hemoglobin 31.4H, Mean Corpuscular Hemoglobin Concent 34.4, Red Cell Distribution Width 13.8, Platelet Count 338, Mean Platelet Volume 8.1, Neutrophils (%) (Auto) 54.5, Lymphocytes (%) (Auto) 34.5, Monocytes (%) (Auto) 7.1, Eosinophils (%) (Auto) 2.0, Basophils (%) (Auto) 1.9, Sodium Level 138, Potassium Level 3.2L, Chloride Level 98, Carbon Dioxide Level 29, Anion Gap 11, Blood Urea Nitrogen 12, Creatinine 1.7H, Estimat Glomerular Filtration Rate 37.1, Glucose Level 290H, Calcium Level 9.9, Total Bilirubin 0.4, Direct Bilirubin 0.1, Aspartate Amino Transf (AST/SGOT) 18, Alanine Aminotransferase (ALT/SGPT) 15, Alkaline Phosphatase 109, Total Protein 7.7, Albumin 3.7 Current Medications Medications (Trade) Dose Ordered Sig/Dena Route PRN Reason Start Time Stop Time Status Last Admin Dose Admin Acetaminophen (Tylenol) 650 mg Q4H PRN ORAL FEVER (temp>100.5F) 05/13/17 20:00 06/12/17 19:59 05/15/17 11:22 Albuterol/ Ipratropium (Albuterol/ Ipratropium) 3 ml Q4H PRN HHN Shortness of Breath 05/13/17 20:00 05/18/17 19:59 Atorvastatin Calcium (Lipitor) 20 mg BEDTIME ORAL 05/15/17 21:00 06/12/17 20:59 Carvedilol (Coreg) 25 mg EVERY 12 HOURS ORAL 05/13/17 21:00 06/12/17 20:59 05/15/17 08:08 Dextrose (Dextrose 50%) STAT PRN IV Hypoglycemia 05/14/17 11:15 06/13/17 11:14 Diltiazem HCl (Cardizem) 10 mg Q1H PRN IV heart rate more than 120, 05/13/17 20:00 06/12/17 19:59 Enalaprilat (Vasotec) 2.5 mg Q6H PRN IV sbp more than 160 05/13/17 20:00 06/12/17 19:59 05/14/17 12:07 Heparin Sodium (Porcine) (Heparin 5000 units/ml) 5,000 units EVERY 12 HOURS SUBQ 05/13/17 21:00 06/12/17 20:59 05/14/17 22:05 Insulin Aspart (NovoLOG) BEFORE MEALS AND HS SUBQ 05/14/17 12:30 06/13/17 12:29 05/15/17 16:16 Labetalol HCl (Normodyne) 20 mg Q1H PRN IV sbp more than 180 05/13/17 20:00 06/12/17 19:59 Lisinopril (Prinivil) 40 mg DAILY ORAL 05/14/17 09:00 06/13/17 08:59 05/15/17 08:09 Nitroglycerin (Ntg) 0.4 mg Q5M PRN SL Prn Chest Pain 05/13/17 20:00 06/12/17 19:59 Ondansetron HCl (Zofran) 4 mg Q6H PRN IVP Nausea & Vomiting 05/13/17 20:00 06/12/17 19:59 Pantoprazole (Protonix) 40 mg DAILY ORAL 05/14/17 09:00 06/13/17 08:59 05/15/17 08:09 Polyethylene Glycol (Miralax) 17 gm DAILYPRN PRN ORAL Constipation 05/13/17 20:00 06/12/17 19:59 Spironolactone (Aldactone) 25 mg DAILY ORAL 05/14/17 20:00 06/13/17 19:59 05/15/17 08:09 Temazepam (Restoril) 15 mg HSPRN PRN ORAL Insomnia 05/13/17 20:00 05/20/17 19:59 Verapamil HCl (Calan SR) 240 mg DAILY ORAL 05/16/17 09:00 06/15/17 08:59 JUSTYNA HERNANDEZ May 15, 2017 17:13
[2017-05-15] MEDS: Enalaprilat 2.5mg/2ml Inj IV PRN (17:25)
[2017-05-15] MEDS ORDERED: Nitroglycerin Subl 0.4mg tab SL PRN (20:45)
[2017-05-15] MEDS ORDERED: Atorvastatin 20mg tab ORAL SCH ×2 (21:00)
[2017-05-15] MEDS ORDERED: dilTIAZem HCl 25mg/5ml Inj IV PRN (21:00)
[2017-05-15] MEDS ORDERED: Albuterol/Ipratropium 3ml neb HHN PRN (21:00)
[2017-05-15] MEDS ORDERED: Enalaprilat 2.5mg/2ml Inj IV PRN (21:00)
[2017-05-15] MEDS ORDERED: Labetalol 5mg/ml 20ml vial IV PRN (21:00)
[2017-05-16 00:46] VITALS: BP 163/85
[2017-05-16 04:00] VITALS: BP 142/79
[2017-05-16] MEDS: NovoLOG Insulin Flexpen SUBQ SCH ×2 (06:46→11:49)
[2017-05-16 08:00] VITALS: BP 148/76
[2017-05-16 08:21] LABS: BASOPHILS % (AUTO) 1.7 % (0.0-2.0); EOSINOPHILS % (AUTO) 1.1 % (0.0-3.0); HEMATOCRIT 42.2 % (37.0-47.0); HEMOGLOBIN 13.8 G/DL (12.0-16.0); LYMPHOCYTES % (AUTO) 30.3 % (20.0-45.0); MEAN CORPUSCULAR VOLUME 92 FL (80-99); MONOCYTES % (AUTO) 6.8 % (1.0-10.0); NEUTROPHILS % (AUTO) 60.2 % (45.0-75.0); PLATELET COUNT 345 K/UL (150-450); RED BLOOD COUNT 4.58 M/UL (4.20-5.40); RED CELL DISTRIBUTION WIDTH 13.6 % (11.6-14.8); WHITE BLOOD COUNT 7.1 K/UL (4.8-10.8)
[2017-05-16 08:47] LABS: ANION GAP 9 mmol/L (5-15); BLOOD UREA NITROGEN 17 mg/dL (7-18); CALCIUM 9.6 MG/DL (8.5-10.1); CARBON DIOXIDE 30 MMOL/L (21-32); CHLORIDE 101 MMOL/L (98-107); CREATININE 2.1 MG/DL (0.55-1.30); POTASSIUM 3.5 MMOL/L (3.5-5.1); SODIUM 140 MMOL/L (136-145)
[2017-05-16] MEDS: Carvedilol 25mg Tab ORAL SCH (08:51)
[2017-05-16] MEDS: Heparin 5000 units/ml inj SUBQ SCH (08:52)
[2017-05-16] MEDS ORDERED: Verapamil SR 240mg tab ORAL SCH ×2 (09:00)
[2017-05-16] MEDS ORDERED: Spironolactone 25mg tab ORAL SCH (09:00)
[2017-05-16] MEDS ORDERED: Lisinopril 20mg tab ORAL SCH (09:00)
[2017-05-16 12:00] VITALS: BP 135/68
--- NOTE | 2017-05-16 12:16 | General Progress Note ---
Assessment/Plan Problem List: (1) Hypertensive urgency, malignant ICD Codes: I16.0 - Hypertensive urgency SNOMED: 166973132 (2) Diabetes mellitus ICD Codes: E11.9 - Type 2 diabetes mellitus without complications SNOMED: 71606203 (3) History of cerebrovascular accident ICD Codes: Z86.73 - Personal history of transient ischemic attack (TIA), and cerebral infarction without residual deficits SNOMED: 243215908 (4) Morbid obesity ICD Codes: E66.01 - Morbid (severe) obesity due to excess calories SNOMED: 979599090, 92805672796975 (5) Dyspnea ICD Codes: R06.00 - Dyspnea, unspecified SNOMED: 004765326 (6) Hypertensive emergency ICD Codes: I16.1 - Hypertensive emergency SNOMED: 578514175922197 Status: stable, progressing, tolerating diet Assessment/Plan ot pt diet bp pain control dc if clear Subjective Constitutional: Reports: weakness Allergies: Coded Allergies: No Known Allergies (Unverified , 05/13/17) All Systems: reviewed and negative except above Subjective calm in bed sl head ache Objective Last 24 Hour Vital Signs Date Time Temp Pulse Resp B/P (MAP) Pulse Ox O2 Delivery O2 Flow Rate FiO2 05/16/17 10:07 100 148/76 05/16/17 08:51 100 148/76 05/16/17 08:50 148/76 05/16/17 08:00 97.3 100 20 148/76 96 05/16/17 04:00 97.3 115 19 142/79 97 05/16/17 01:35 98.0 05/16/17 00:46 98.0 104 20 163/85 96 05/15/17 20:18 97 139/71 05/15/17 20:00 98.4 97 18 139/71 100 Room Air 05/15/17 17:45 95 153/90 05/15/17 17:25 163/75 05/15/17 17:18 94 18 163/75 100 Room Air 05/15/17 17:07 98.4 86 18 141/80 100 Room Air 05/15/17 15:26 89 05/15/17 14:01 79 05/15/17 12:21 97.9 Intake and Output 05/15/17 05/16/17 19:00 07:00 Intake Total 1090 ml 240 ml Balance 1090 ml 240 ml Intake Oral 1090 ml 240 ml # Voids 3 2 # Bowel Movements 2 Laboratory Tests 05/16/17 07:45: White Blood Count 7.1, Red Blood Count 4.58, Hemoglobin 13.8, Hematocrit 42.2, Mean Corpuscular Volume 92, Mean Corpuscular Hemoglobin 30.1, Mean Corpuscular Hemoglobin Concent 32.7, Red Cell Distribution Width 13.6, Platelet Count 345, Mean Platelet Volume 7.8, Neutrophils (%) (Auto) 60.2, Lymphocytes (%) (Auto) 30.3, Monocytes (%) (Auto) 6.8, Eosinophils (%) (Auto) 1.1, Basophils (%) (Auto ) 1.7, Sodium Level 140, Potassium Level 3.5, Chloride Level 101, Carbon Dioxide Level 30, Anion Gap 9, Blood Urea Nitrogen 17, Creatinine 2.1H, Estimat Glomerular Filtration Rate 29.1, Glucose Level 319H, Calcium Level 9.6 Height (Feet): 5 Height (Inches): 6.00 Weight (Pounds): 210 General Appearance: alert EENT: normal ENT inspection Neck: normal alignment Cardiovascular: normal peripheral pulses, normal rate, regular rhythm Respiratory/Chest: chest wall non-tender, lungs clear, normal breath sounds Abdomen: normal bowel sounds, non tender, soft Extremities: normal inspection Edema: no edema noted Arm (L), no edema noted Arm (R), no edema noted Leg (L), no edema noted Leg (R), no edema noted Pedal (L), no edema noted Pedal (R), no edema noted Generalized Neurologic: responsive, motor weakness Skin: normal pigmentation, warm/dry SAKSHI RIDER May 16, 2017 12:16
[2017-05-16] MEDS ORDERED: ACETAMINOPHEN325 M1 ORAL (13:48)
[2017-05-16] MEDS ORDERED: HEPARIN SO5000 UNIT2 SUBQ (13:49)
[2017-05-16] MEDS ORDERED: NOVOLOG100 UNITS1 (13:50)
[2017-05-16] MEDS ORDERED: DUONEB 0.5-3(2.53 ML HHN (13:52)
[2017-05-16] MEDS ORDERED: NITROGLYCERIN2.5 M1 SL (13:54)
[2017-05-16] MEDS ORDERED: MIRALAX17 G2 ORAL (13:55)
[2017-05-16] MEDS ORDERED: ZOFRAN4 M3 ORAL (13:55)
[2017-05-16] MEDS ORDERED: TEMAZEPAM15 MG ORAL (13:56)
[2017-05-16] MEDS ORDERED: SPIRONOLACTONE1 EACH ORAL (13:56)
[2017-05-16] MEDS ORDERED: VERAPAMIL ER240 M2 PO (13:57)
[2017-05-16] MEDS ORDERED: NS 275ml ONE (14:49)
--- NOTE | 2017-05-16 16:43 | Cardiology Progress Note ---
Assessment/Plan Assessment/Plan 1. Accelerated hypertension, may have to increase verapamil to 360mg daily since she is still tachycardic. 2. Normal left ventricular systolic function with LVEF of about 55% to 60%. There is no evidence of either systolic or diastolic heart failure on 2D echocardiography. 3. NARDA, creat up to 2.1, nephrology follow up. 4. History of cerebrovascular accident, continue ASA and statins. Subjective Subjective Sinus tachycardia at 100. Objective Last 24 Hour Vital Signs Date Time Temp Pulse Resp B/P (MAP) Pulse Ox O2 Delivery O2 Flow Rate FiO2 05/16/17 12:00 98.1 92 19 135/68 97 05/16/17 10:07 100 148/76 05/16/17 08:51 100 148/76 05/16/17 08:50 148/76 05/16/17 08:00 97.3 100 20 148/76 96 05/16/17 06:53 95 Room Air 21 05/16/17 06:53 Room Air 21 05/16/17 04:00 97.3 115 19 142/79 97 05/16/17 01:35 98.0 05/16/17 00:46 98.0 104 20 163/85 96 05/15/17 20:18 97 139/71 05/15/17 20:00 98.4 97 18 139/71 100 Room Air 05/15/17 17:45 95 153/90 05/15/17 17:25 163/75 05/15/17 17:18 94 18 163/75 100 Room Air 05/15/17 17:07 98.4 86 18 141/80 100 Room Air Intake and Output 05/15/17 05/16/17 19:00 07:00 Intake Total 1090 ml 240 ml Balance 1090 ml 240 ml Intake Oral 1090 ml 240 ml # Voids 3 2 # Bowel Movements 2 2D Echo: LVEF 55%, Mild LVH, Mild AR, RVSP 22 mmHg Laboratory Tests Test 05/16/17 07:45 White Blood Count 7.1 K/UL (4.8-10.8) Red Blood Count 4.58 M/UL (4.20-5.40) Hemoglobin 13.8 G/DL (12.0-16.0) Hematocrit 42.2 % (37.0-47.0) Mean Corpuscular Volume 92 FL (80-99) Mean Corpuscular Hemoglobin 30.1 PG (27.0-31.0) Mean Corpuscular Hemoglobin Concent 32.7 G/DL (32.0-36.0) Red Cell Distribution Width 13.6 % (11.6-14.8) Platelet Count 345 K/UL (150-450) Mean Platelet Volume 7.8 FL (6.5-10.1) Neutrophils (%) (Auto) 60.2 % (45.0-75.0) Lymphocytes (%) (Auto) 30.3 % (20.0-45.0) Monocytes (%) (Auto) 6.8 % (1.0-10.0) Eosinophils (%) (Auto) 1.1 % (0.0-3.0) Basophils (%) (Auto) 1.7 % (0.0-2.0) Sodium Level 140 MMOL/L (136-145) Potassium Level 3.5 MMOL/L (3.5-5.1) Chloride Level 101 MMOL/L (98-107) Carbon Dioxide Level 30 MMOL/L (21-32) Anion Gap 9 mmol/L (5-15) Blood Urea Nitrogen 17 mg/dL (7-18) Creatinine 2.1 MG/DL (0.55-1.30) H Estimat Glomerular Filtration Rate 29.1 mL/min (>60) Glucose Level 319 MG/DL (74-106) H Calcium Level 9.6 MG/DL (8.5-10.1) Objective HEENT: Atraumatic, normocephalic. Anicteric. Pupils are equal, round, and reactive to light and accommodation. Extraocular muscles intact. NECK: JVP less than 5 cm. No carotid bruits. Carotid upstrokes 2+ bilaterally. CARDIOVASCULAR: Normal S1, S2. Regular rate and rhythm. Tachycardic, No murmurs, gallops, or rubs. PMI is at fourth intercostal space at the midclavicular line. LUNGS: Clear to auscultation bilaterally. ABDOMEN: Soft, nontender, and nondistended. No hepatosplenomegaly. Positive bowel sounds. EXTREMITIES: No evidence of edema, clubbing, or cyanosis. There is decreased motor function on the left upper and lower extremities. ANKIT ALVA May 16, 2017 16:42
[2017-05-16] MEDS ORDERED: Miralax 17gm pkt ORAL PRN (20:00)
--- NOTE | 2017-05-16 23:30 | Pulmonology Progress Note ---
Assessment/Plan Problems: (1) Hypertensive emergency (2) Dyspnea (3) Morbid obesity (4) Diabetes mellitus (5) History of cerebrovascular accident Assessment/Plan feeling better less short of breath monitor bp check echo f/u troponin cardio evaluation.iapppreciated watch creatinine med/surg dc planning Subjective ROS Limited/Unobtainable: No Constitutional: Reports: no symptoms HEENT: Repors: no symptoms Respiratory: Reports: no symptoms Allergies: Coded Allergies: No Known Allergies (Unverified , 05/13/17) Objective Last 24 Hour Vital Signs Date Time Temp Pulse Resp B/P (MAP) Pulse Ox O2 Delivery O2 Flow Rate FiO2 05/16/17 12:00 98.1 92 19 135/68 97 05/16/17 10:07 100 148/76 05/16/17 08:51 100 148/76 05/16/17 08:50 148/76 05/16/17 08:00 97.3 100 20 148/76 96 05/16/17 06:53 95 Room Air 21 05/16/17 06:53 Room Air 21 05/16/17 04:00 97.3 115 19 142/79 97 05/16/17 01:35 98.0 05/16/17 00:46 98.0 104 20 163/85 96 Intake and Output 05/15/17 05/16/17 19:00 07:00 Intake Total 1090 ml 240 ml Balance 1090 ml 240 ml Intake Oral 1090 ml 240 ml # Voids 3 2 # Bowel Movements 2 Objective General Appearance: WD/WN Lines, tubes and drains: peripheral HEENT: normocephalic, atraumatic Neck: non-tender, normal alignment Respiratory/Chest: chest wall non-tender, lungs clear Cardiovascular/Chest: normal peripheral pulses, normal rate Abdomen: normal bowel sounds, non tender Genitourinary/Rectal: normal genital exam Extremities: normal range of motion, non-tender Skin Exam: normal pigmentation 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 Laboratory Tests 05/16/17 07:45: White Blood Count 7.1, Red Blood Count 4.58, Hemoglobin 13.8, Hematocrit 42.2, Mean Corpuscular Volume 92, Mean Corpuscular Hemoglobin 30.1, Mean Corpuscular Hemoglobin Concent 32.7, Red Cell Distribution Width 13.6, Platelet Count 345, Mean Platelet Volume 7.8, Neutrophils (%) (Auto) 60.2, Lymphocytes (%) (Auto) 30.3, Monocytes (%) (Auto) 6.8, Eosinophils (%) (Auto) 1.1, Basophils (%) (Auto ) 1.7, Sodium Level 140, Potassium Level 3.5, Chloride Level 101, Carbon Dioxide Level 30, Anion Gap 9, Blood Urea Nitrogen 17, Creatinine 2.1H, Estimat Glomerular Filtration Rate 29.1, Glucose Level 319H, Calcium Level 9.6 JUSTYNA HERNANDEZ May 16, 2017 23:30
[2017-05-19] MEDS ORDERED: VERAPAMIL HCL360 MG PO (08:49)
--- NOTE | 2017-05-19 08:55 | Discharge Summary ---
Discharge Summary Hospital Course Date of Admission May 13, 2017 at 19:18 Date of Discharge May 16, 2017 at 14:50 Admitting Diagnosis hypertensive malignancy, headache HPI Cindy Ahmadi is a 61 year old female who was admitted on May 13, 2017 at 19:18 for Hypertensive Mailgnancy, Headache Hospital Course dc summary #[id number] Discharge Medications New Medications: Verapamil Hcl (Verapamil Hcl) 360 Mg Cap24h.pel 360 MG PO DAILY, #30 CAP Continued Medications: Acetaminophen* (Acetaminophen 325MG Tablet*) 325 Mg Tablet 650 MG ORAL Q4H PRN for For Pain, TAB Atorvastatin Calcium* (Lipitor*) 20 Mg Tablet 20 MG ORAL BEDTIME, TAB Carvedilol* (Carvedilol*) 25 Mg Tablet 25 MG ORAL EVERY 12 HOURS, TAB Heparin Sod (Porcine) (Heparin Sodium*) 5 000/1 Ml Vial 5000 UNITS SUBQ EVERY 12 HOURS, VIAL Insulin Aspart (Novolog Flexpen) 100 Unit/1 Ml Insuln.pen Ipratropium/Albuterol Sulfate (DuoNeb 0.5-3(2.5)mg/3ml) 3 Ml Ampul.neb 3 ML HHN EVERY 4 HOURS PRN for Shortness of Breath, EA Nitroglycerin (Nitroglycerin) 2.5 Mg Capsule.er 0.4 MG SL every 5min x3 doses for Prn Chest Pain, CAP Ondansetron* (Zofran*) 4 Mg Tablet 4 MG ORAL Q6H PRN for Nausea & Vomiting, TAB Pantoprazole* (Protonix*) 40 Mg Tablet.dr 40 MG ORAL DAILY, TAB Polyethylene Glycol 3350* (Miralax*) 17 Gm Powd.pack 17 GM ORAL DAILY, PACKET Sennosides (Senna) 8.6 Mg Tablet 17.6 MG PO HS, TAB Spironolact/Hydrochlorothiazid (Spironolactone-Hctz 25-25 Tab) 1 Each Tablet 1 TAB ORAL DAILY, TAB Temazepam (Temazepam*) 15 Mg Capsule 15 MG ORAL BEDTIME for Insomnia, CAP 0 Refills Discharge Condition Upon Discharge: stable Discharge Disposition Patient was discharged to Discharge Diagnoses: Discharge Instructions Discharge Instructions Special Instructions I have been assigned to complete a D/C Summary on this account. I was not involved in the patient management Charleen Tubbs NP ([facility]) May 19, 2017 08:55
--- NOTE | 2017-05-19 22:30 | Discharge Summary 2 SIG ---
DATE OF ADMISSION: 05/13/2017 DATE OF DISCHARGE: 05/16/2017 REASON FOR ADMISSION: 61-year-old female with past medical history significant for diabetes and CVA, presented to emergency department with a complaint of headache. The patient had a history of migraines. She also was found to have a high blood pressure over the past few days. The patient complained of mild nausea. CT of the head was negative for acute intracranial bleeding or mass effect. The patient was noted to have elevated blood pressure. Troponin was negative. EKG showed sinus rhythm. No acute ischemic changes. No leukocytosis. Stable hemoglobin and hematocrit. Potassium -3.3. BUN -11 and creatinine 1-.5. CK -84. Pro BNP -457. Chest x-ray revealed no acute cardiopulmonary pathology. EKG showed normal sinus rhythm. No acute ischemic changes. The patient was admitted with diagnoses of hypertensive emergency, dyspnea, diabetes, history of CVA, acute kidney injury, and morbid obesity. HOSPITAL COURSE: The patient was admitted to telemetry floor. Cardiology and Pulmonology consults were requested. Serial troponin x3 were negative. Echocardiogram revealed preserved ejection fraction of 55%. No evidence of wall motion abnormalities. Right ventricular systolic pressure of 22. On telemetry- no evidence of arrhythmia. The patient was in sinus rhythm. Supplemental oxygen provided as needed to keep pulse oximetry above 92%. Blood pressure regimen was optimized. The patient was on beta-jj and verapamil. Creatinine up to 2.1. PAKO inhibitor was discontinued. Dose of verapamil uptitrated as per Cardiology. Closely monitor renal parameters at the facility. Aspirin and statin were continued. Supplemental oxygen provided as needed to keep pulse oximetry above 92%. Pulmonary toilet was on the standby as needed. DVT prophylaxis provided. Potassium was replaced. Renal parameters and electrolytes were closely monitored. Nephrotoxics were avoided. The patient was working with physical and occupational therapists. Blood sugar was managed with sliding scale of insulin. Blood pressure normalized, no further headaches. The patient was stable for discharge back to [facility]. FINAL DIAGNOSES: 1. Hypertensive emergency. 2. Dyspnea. 3. Diabetes. 4. History of cerebrovascular accident. 5. Morbid obesity. 6. Acute kidney injury. DISCHARGE MEDICATIONS: See medication reconciliation list. DISCHARGE INSTRUCTIONS: The patient was discharged to [facility]. Follow up with medical doctor at the facility. Closely monitor renal parameters. Avoid nephrotoxics. Juan Alberto Kwan D.O. I have been assigned to dictate discharge summary on this account and I was not involved in the patient's management. Charleen Tubbs N.P. ([facility]) DR: KEELY JOB#: [id number] CC: DANA
== END 2017-05-16 14:50 | DRG 305 ==
LOC: EDBD 15:36 → EMR 16:55 → 2E 19:18 → EDBEDREQ 20:21 → 3E 05-15 21:15
DX: I16.1 Hypertensive emergency (principal); N17.9 Acute kidney failure, unspecified; E66.01 Morbid (severe) obesity due to excess calories; I69.354 Hemiplegia and hemiparesis following cerebral infarction affecting left non-dominant side; E11.9 Type 2 diabetes mellitus without complications; R06.00 Dyspnea, unspecified; J44.9 Chronic obstructive pulmonary disease, unspecified; E87.6 Hypokalemia; Z79.4 Long term (current) use of insulin
CPT/HCPCS: 36415; 70450; 71045; 80048; 80053; 80076; 82550; 82553; 82962; 83690; 83880; 84484; 85025; 93005; 93306; 94760; 99285; J1815; J2405; J8499